=== PATIENT | male | born 1985 | race Caucasian/White ===

== ENCOUNTER 2021-02-03 10:53 | Day surgery (SDC) | payer MEDICAID ==
[2021-02-03] VITALS (10 sets, daily range): BP systolic 115–137; BP diastolic 64–87
[~2021-02-03] VITALS: Ht 182.9 cm; Wt 108.4 kg
[2021-02-03] MEDS ORDERED: LISI30TA4 PO (11:20)
[2021-02-03] MEDS ORDERED: METO-395 PO (11:20)
[2021-02-03] MEDS ORDERED: AMLO10TA13 PO (11:20)
[2021-02-03] MEDS ORDERED: VITAMIN D PO (11:21)
[2021-02-03] MEDS ORDERED: normal saline 1,000 ML IV SCH ×2 (12:10→14:30)
[2021-02-03] MEDS ORDERED: LIDOcaine/PRILOcaine 5gm cream TP ONE (12:10)
[2021-02-03] MEDS ORDERED: LORazepam 0.5 MG tablet PO PRN (12:10)
[2021-02-03] MEDS ORDERED: diphenhydrAMINE 25mg capsule PO PRN (12:10)
[2021-02-03] MEDS ORDERED: verapamil 2.5 mg/ml inj IV ONE (12:44)
[2021-02-03] MEDS ORDERED: heparin 1,000unit/ml 10ml vial 10 ML ONE (12:45)
[2021-02-03] MEDS ORDERED: LIDOcaine 1% (10mg/ml)w/preservative injection 20ml MDV ONE (12:45)
[2021-02-03] MEDS ORDERED: midazolam 1 mg/ML 2ml injection ONE (12:45)
[2021-02-03] MEDS ORDERED: nitroGLYCERIN-Tridil 50MG/D5W 250 ML IV ONE (12:45)
[2021-02-03] MEDS ORDERED: fentaNYL/PF 50MCG/1 ML 2ML syringe ONE (12:45)
[2021-02-03] MEDS ORDERED: iohexol 350MG/ML 100ml bottle IV ONE (12:46)
[2021-02-03] MEDS ORDERED: diphenhydrAMINE 50 mg/ml inj ONE (13:14)
[2021-02-03] MEDS ORDERED: proCHLORperazine 10 MG/2 ml inj IV PRN (14:30)
[2021-02-03] MEDS ORDERED: HYDROcodone/acetaminophen 10/325mg tab PO PRN (14:30)
[2021-02-03] MEDS ORDERED: ondansetron/PF 4mg/2ml inj IV PRN (14:30)
[2021-02-03] MEDS ORDERED: HYDROcodone/acetaminophen 5mg/325mg tablet PO PRN (14:30)
[2021-02-03] MEDS ORDERED: OXAZEpam 15mg capsule PO PRN (14:30)
--- NOTE | 2021-02-03 14:30 | NUR ---
Pt ambulated to bathroom, voided. Pt vs stable as charted. pt denies cp, denies sob. Will continue to monitor.
== END 2021-02-03 16:40 | disposition home or self-care (01) ==
LOC: SSTAY O 10:53
PROVIDERS: ATTEND Internal Medicine Interventional Cardiology
DX: R94.39 Abnormal result of other cardiovascular function study (principal); R07.9 Chest pain, unspecified; I10 Essential (primary) hypertension; E78.5 Hyperlipidemia, unspecified; N28.1 Cyst of kidney, acquired; Z79.899 Other long term (current) drug therapy; Z88.8 Allergy status to other drugs, medicaments and biological substances; Z88.5 Allergy status to narcotic agent
CPT/HCPCS: 93005; 93458; 99152; C1769; C1894; J1200; J1644; J2001; J2250; J3010; J7030; Q0163; Q9967; A4620; J3490